=== PATIENT | male | born 1985 | race Caucasian/White ===

== ENCOUNTER 2017-04-08 12:26 | Observation (INO) | payer SELFPAY ==
[~2017-04-08] VITALS: Ht 193 cm; Wt 180.0 kg
[2017-04-08 12:27] VITALS: BP 183/99; PULSE 121; RESP 16; TEMP 98; O2SAT 98
--- NOTE | 2017-04-08 12:47 | PD ---
HPI Chief Complaint: Cardiac Complaint Time Seen by Provider: 12:46 Travel History International Travel<30 days: No Contact w/Intl Traveler<30days: No Traveled to known affect area: No History of Present Illness HPI 32-year-old male came to the emergency room with history of both hands and feet tingling for past 1 week. Patient also noticed that he is progressively getting weak and has been short of breath for past 2 days. He has been getting some substernal chest pain as well. This morning when he was in the shower he started feeling very weak and that's when he decided to come to the emergency room and be checked out. No radiation of the pain. He describes the chest pain as squeezing kind. No aggravating or relieving factors identified. Patient says that for past 5-6 years he was mostly staying at home taking care of his father. 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 He acknowledges the fact that he is significantly overweight. No history of coronary artery disease. Patient is not a smoker. No recent long distance travel history or any surgeries or procedures. FORMERLY [facility], [facility] Past Medical History Narrative Medical List of his past medical, surgical, social and family history reviewed from the nursing note. Diabetes: Yes Social History Tobacco Use: Yes Allergies-Medications (Allergen,Severity, Reaction): Coded Allergies: Morphine (Verified Allergy, Severe, Rash, 04/08/17) pt states "I feel like I'm on fire." Comments List of his allergies reviewed from the nursing note Reported Meds & Prescriptions Reported Meds & Active Scripts Active Narrative Medication Awaiting for the nurse to update the medical reconciliation. Review of Systems Except as stated in HPI: all other systems reviewed are Neg Physical Exam Narrative GENERAL: Awake, alert, morbidly obese, anxious, moderate distress SKIN: Focused skin assessment warm/dry. Acanthosis nigricans. HEAD: Atraumatic. Normocephalic. EYES: Pupils equal and round. No scleral icterus. No injection or drainage. ENT: No nasal bleeding or discharge. Mucous membranes pink and moist. NECK: Trachea midline. No JVD. CARDIOVASCULAR: Regular rate and rhythm. No murmur appreciated. RESPIRATORY: No accessory muscle use. Clear to auscultation. Breath sounds equal bilaterally. GASTROINTESTINAL: Abdomen soft, non-tender, nondistended. Hepatic and splenic margins not palpable. MUSCULOSKELETAL: No obvious deformities. No clubbing. No cyanosis. No edema. NEUROLOGICAL: Awake and alert. No obvious cranial nerve deficits. Motor grossly within normal limits. Normal speech. PSYCHIATRIC: Appropriate mood and affect; insight and judgment normal. Data Data Last Documented VS Orders Electrocardiogram (04/08/17 12:59) Basic Metabolic Panel (Bmp) (04/08/17 12:59) Ckmb (Isoenzyme) Profile (04/08/17 12:59) Complete Blood Count With Diff (04/08/17 12:59) Magnesium (Mg) (04/08/17 12:59) Prothrombin Time / Inr (Pt) (04/08/17 12:59) Act Partial Throm Time (Ptt) (04/08/17 12:59) Troponin I (04/08/17 12:59) Chest, Single Ap (04/08/17 12:59) Ecg Monitoring (04/08/17 12:59) Bilateral Bp Monitoring (04/08/17 12:59) Iv Access Insert/Monitor (04/08/17 12:59) Oximetry (04/08/17 12:59) Oxygen Administration (04/08/17 12:59) Ct Brain W/O Iv Contrast(Rout) (04/08/17 ) Aspirin Chew (Aspirin Chew) (04/08/17 14:00) Insulin Human Regular Inj (Novolin R Inj (04/08/17 14:45) Sodium Chlor 0.9% 1000 Ml Inj (Ns 1000 M (04/08/17 14:45) Admit Order (Ed Use Only) (04/08/17 15:18) Labs MDM Medical Decision Making Medical Screen Exam Complete: Yes Emergency Medical Condition: Yes Medical Record Reviewed: Yes Interpretation(s) Twelve-lead EKG was reviewed by me. Normal sinus rhythm, left axis deviation, PVCs, poor R-wave progression. Nonspecific ST-T wave changes. Heart rate of 97 bpm. Differential Diagnosis ACS, non-STEMI, congestive heart failure, electrolyte abnormality Narrative Course 1:56 PM awaiting for the blood test results to come back. Patient was given 2 baby aspirin's to chew. Awaiting for the CT to be done and resulted. 3:18 PM test results came back and patient's sugar is very high. I have ordered 12 units of subcutaneous insulin 10 1 L of IV fluid bolus. Given his medical issues and the new onset diabetes where he would require some teaching to use medication before going home I decided to admit him medically for his chest pain. Procedures EKG Prior to Arrival: No Diagnosis Primary Impression: Chest pain Qualified Code: R07.9 - Chest pain, unspecified type Additional Impressions: Hyperglycemia New onset type 1 diabetes mellitus, uncontrolled Admitting Information Admitting Physician Requests: Observation Scripts Aspirin (Aspirin Low Strength)81 Mg Chew81 Mg CHEW DAILY #30 EA Prov:Emily Colon JIN 04/11/17 Glucocom Test Strips 1 Samina Samina #1 Ea .route As Directed Prov:Emily Colon JIN 04/11/17 Lancets 1 Mis Mis #1 EA .ROUTE DIRECTED Ref 0 Prov:Eimly Colon JIN 04/11/17 Insulin Syringe/U-100/31G X 5/16" 1 ml 1 Mis Mis #1 EA .ROUTE DIRECTED Ref 0 Prov:IsaiahEmily JIN 04/11/17 Blood Glucose Monitoring W/Device (Glucocom Blood Glucose Mo W/Device)1 Kit Kit #1 Kit .route As Directed Prov:Emily Colon JIN 04/11/17 Lisinopril 5 Mg Tab5 Mg PO DAILY #30 TAB Prov:IsaiahEmily Carlton JIN 04/11/17 Insulin Detemir Inj (Levemir Inj)1,000 unit/ 10 ML Vial22 Units SQ BID #60 INJECTION Prov:Emily Colon PA-C 04/11/17 Atorvastatin (Lipitor)10 Mg Tab10 Mg PO HS #30 TAB Prov:Emily Colon PA-C 04/11/17 Alta Dale MD Apr 08, 2017 12:47 Prothrombin Time 11.2 SEC Prothromb Time International 1.0 RATIO Ratio Activated Partial 27.6 SEC Thromboplast Time Sodium Level 134 MEQ/L Potassium Level MEQ/L Chloride Level 98 MEQ/L Carbon Dioxide Level 25.1 MEQ/L Anion Gap 11 MEQ/L Blood Urea Nitrogen 12 MG/DL Creatinine 1.06 MG/DL Estimat Glomerular Filtration 81 ML/MIN Rate Random Glucose 471 MG/DL Calcium Level 8.6 MG/DL Magnesium Level 2.1 MG/DL Total Creatine Kinase 64 U/L Troponin I LESS THAN 0.02 NG/ML MDM Medical Decision Making Medical Screen Exam Complete: Yes Emergency Medical Condition: Yes Medical Record Reviewed: Yes Interpretation(s) Twelve-lead EKG was reviewed by me. Normal sinus rhythm, left axis deviation, PVCs, poor R-wave progression. Nonspecific ST-T wave changes. Heart rate of 97 bpm. Differential Diagnosis ACS, non-STEMI, congestive heart failure, electrolyte abnormality Narrative Course 1:56 PM awaiting for the blood test results to come back. Patient was given 2 baby aspirin's to chew. Awaiting for the CT to be done and resulted. 3:18 PM test results came back and patient's sugar is very high. I have ordered 12 units of subcutaneous insulin 10 1 L of IV fluid bolus. Given his medical issues and the new onset diabetes where he would require some teaching to use medication before going home I decided to admit him medically for his chest pain. Procedures EKG Prior to Arrival: No Diagnosis Primary Impression: Chest pain Qualified Code: R07.9 - Chest pain, unspecified type Additional Impressions: Hyperglycemia New onset type 1 diabetes mellitus, uncontrolled Admitting Information Admitting Physician Requests: Observation Scripts No Active Prescriptions or Reported Meds Alta Dale MD Apr 08, 2017 12:47
--- NOTE | 2017-04-08 13:14 | RADRPT ---
EXAM DATE/TIME: 04/08/2017 13:00 [facility] COMPARISON: No previous studies available for comparison. INDICATIONS : Chest pressure. Short of breath. Numbness in extremities. MEDICAL HISTORY : Asthma. SURGICAL HISTORY : None. ENCOUNTER: Initial ACUITY: 1 week PAIN SCORE: 3/10 LOCATION: Bilateral chest FINDINGS: A single view of the chest demonstrates the lungs to be symmetrically aerated without evidence of mas s, infiltrate or effusion. The cardiomediastinal contours are unremarkable. Osseous structures are intact. CONCLUSION: No acute disease. Bull Curtis MD on April 08, 2017 at 13:13 Board Certified Radiologist. This report was verified electronically.
[2017-04-08] MEDS ORDERED: ASPIRIN 81 MG CHEW TAB CHEW ONE (14:00)
[2017-04-08 14:07] LABS: AUTOMATED NEUTROPHIL # 6.1 TH/MM3 (1.8-7.7); BASOPHIL # 0.1 TH/MM3 (0-0.2); BASOPHIL % 0.8 % (0.0-2.0); EOSINOPHIL # 0.1 TH/MM3 (0-0.4); EOSINOPHIL % 0.9 % (0.0-4.0); HEMATOCRIT 45.6 % (39.0-51.0); HEMO FLAGS DIFF FINAL; LYMPH % 24.1 % (9.0-44.0); LYMPHOCYTE # 2.2 TH/MM3 (1.0-4.8); MEAN CORPUSCULAR HEMOGLOBIN 29.2 PG (27.0-34.0); MEAN CORPUSCULAR HGB CONC 34.7 % (32.0-36.0); MONO % 6.9 % (0.0-8.0); NEUT % 67.3 % (16.0-70.0); PLATELET COUNT 217 TH/MM3 (150-450); RED BLOOD COUNT 5.43 MIL/MM3 (4.50-5.90); RED CELL DISTRIBUTION WIDTH 13.2 % (11.6-17.2)
[2017-04-08 14:25] LABS: APTT (PATIENT) 27.6 SEC (24.3-30.1); PROTHROMBIN TIME - PATIENT 11.2 SEC (9.8-11.6)
[2017-04-08 14:29] LABS: ANION GAP 11 MEQ/L (5-15); BICARBONATE 25.1 MEQ/L (21.0-32.0); BLOOD UREA NITROGEN 12 MG/DL (7-18); CHLORIDE 98 MEQ/L (98-107); GLOMERULAR FILTRATION RATE 81 ML/MIN (>89); MAGNESIUM 2.1 MG/DL (1.5-2.5); SODIUM (NA) 134 MEQ/L (136-145)
[2017-04-08 14:34] LABS: CREATINE KINASE 64 U/L (39-308)
[2017-04-08] MEDS ORDERED: SODIUM CHLOR 0.9% 1000 ML INJ 1,000 ML IV ONE (14:45)
[2017-04-08] MEDS ORDERED: INSULIN HUMAN REGULAR 1,000 UNITS/10 ML VIAL SQ ONE (14:45)
--- NOTE | 2017-04-08 15:32 | RADRPT ---
EXAM DATE/TIME: 04/08/2017 15:13 [facility] COMPARISON: No previous studies available for comparison. INDICATIONS : Patient complains of weakness, shortness of breath, chest pain. RADIATION DOSE: 48.76 CTDIvol (mGy) MEDICAL HISTORY : Diabetes mellitus type 1. SURGICAL HISTORY : None. ENCOUNTER: Initial ACUITY: 1 day PAIN SCALE: 0/10 LOCATION: cranial TECHNIQUE: Multiple contiguous axial images were obtained of the head. Using automated exposure control and adj ustment of the mA and/or kV according to patient size, radiation dose was kept as low as reasonably a chievable to obtain optimal diagnostic quality images. DICOM format image data is available electro nically for review and comparison. FINDINGS: CEREBRUM: The ventricles are normal for age. No evidence of midline shift, mass lesion, hemorrhage or acute in farction. No extra-axial fluid collections are seen. POSTERIOR FOSSA: The cerebellum and brainstem are intact. The 4th ventricle is midline. The cerebellopontine angle i s unremarkable. EXTRACRANIAL: The visualized portion of the orbits is intact. SKULL: The calvaria is intact. No evidence of skull fracture. CONCLUSION: Normal examination. Ki Goyal MD on April 08, 2017 at 15:31 Board Certified Radiologist. This report was verified electronically.
[2017-04-08] MEDS ORDERED: INSULIN ASPART SUPPLEMENTAL SCALE SQ SCH (16:00)
[2017-04-08] MEDS ORDERED: GLUCAGON 1 MG/ML VIAL OTHER PRN (16:00)
[2017-04-08] MEDS ORDERED: NALOXONE HCL 0.4 MG/ML AMP IV PRN (16:00)
[2017-04-08] MEDS ORDERED: SENNOSIDES 8.6 MG TAB PO PRN (16:00)
[2017-04-08] MEDS ORDERED: LACTULOSE SYRUP 20 GM/30 ML CUP PO PRN (16:00)
[2017-04-08] MEDS ORDERED: MAGNESIUM HYDROXIDE SUSP 30 ML CUP PO PRN (16:00)
[2017-04-08] MEDS ORDERED: ONDANSETRON HCL 4 MG/2 ML VIAL IVP PRN (16:00)
[2017-04-08] MEDS ORDERED: SODIUM CHLORIDE 0.9% FLUSH 10 ML FLUSH IV FLUSH PRN (16:00)
[2017-04-08] MEDS ORDERED: DEXTROSE 50% IN WATER 50 ML VIAL(D50) IV PRN (16:00)
[2017-04-08] MEDS ORDERED: BISACODYL 10 MG SUPP RECTAL PRN (16:00)
--- NOTE | 2017-04-08 16:03 | HHI.HP ---
HPI Service [facility] Hospitalists Primary Care Physician No Primary Care Physician Admission Diagnosis chest pain, rule out ACS, new onset diabetes Diagnoses: Chief Complaint: Chest pain SOB Numbness/tingling bilateral hands and feet Weakness Travel History International Travel<30 Days: No Contact w/Intl Traveler <30 Da: No Traveled to Known Affected Are: No History of Present Illness This is a 32-year-old male with newly diagnosed diabetes approximately 6 months ago who was previously on metformin but unable to tolerate secondary GI upset and was subsequently placed on glyburide which patient discontinued on his own determining himself he was misdiagnosed who presents to [facility] ED with complaints of chest pain, shortness of breath and numbness and tingling in bilateral hands and feet. Patient reports that for the last week, he's been experiencing numbness in the hands and feet which became much more severe in the past 24 hours. He also reports new onset chest pain that began while patient was walking around [place] yesterday. The patient describes the chest pain as someone pushing on his chest with associated shortness of breath. Patient states that the chest pain improved with rest. Patient's had 2 more episodes, once while taking a shower this morning and the other while walking into the ED from the parking lot. 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 The symptoms were alleviated with 30 minutes of rest in air conditioning. Patient states he checks his blood sugar once a month and it's always been around 120. Patient denies any nausea, vomiting or abdominal pain. He denies any recent illness. He reports one-year history of alternating diarrhea and constipation. Denies any black/bloody/tarry stools. He denies any hematuria or dysuria. In the ED, patient is afebrile and white count is normal. Chest x-ray shows no acute disease. CT of the head was obtained and was unremarkable. His blood sugar was extremely elevated at 471. Initial troponin was negative. Review of Systems Except as stated in HPI: all other systems reviewed are Neg Past Family Social History Past Medical History Newly diagnosed diabetes mellitus, patient stopped his medication on his own. Past Surgical History Right ankle surgery Reported Medications Patient denies any home medications. Allergies: Coded Allergies: Morphine (Verified Allergy, Severe, Rash, 04/08/17) pt states "I feel like I'm on fire." Active Ordered Medications Current Medications Medications (Trade) Dose Ordered Sig/Rosaline Route Start Time Stop Time Status Last Admin (NS 1000 ml Inj) 1,000 ml @ 999 mls/hr BOLUS ONCE IV 04/08/17 14:45 04/08/17 15:45 04/08/17 15:10 Family History Father, diabetes, degenerative disc disease lumbar spine Mother, COPD Social History Patient reports tobacco use of 2 cigarettes per week. Patient reports alcohol consumption of 2 beers per week. Patient denies any illicit drug use. 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 Physical Exam Vital Signs Vital Signs Date Time Temp Pulse Resp B/P Pulse Ox O2 Delivery O2 Flow Rate FiO2 04/08/17 13:50 102 04/08/17 12:27 98.0 121 16 183/99 98 Room Air Physical Exam GENERAL: This is a well-nourished, well-developed moridly obese patient, in no apparent distress. Awake and alert. SKIN: No rashes, ecchymoses or lesions. Cool and dry. HEAD: Atraumatic. Normocephalic. No temporal or scalp tenderness. EYES: Pupils equal round and reactive. Extraocular motions intact. No scleral icterus. No injection or drainage. ENT: Nose without bleeding or purulent drainage. Throat without erythema, tonsillar hypertrophy or exudate. Uvula midline. Airway patent. NECK: Trachea midline. No JVD or lymphadenopathy. Supple, nontender, no meningeal signs. CARDIOVASCULAR: Tachycardic without murmurs, gallops, or rubs. RESPIRATORY: Clear to auscultation. Breath sounds equal bilaterally. No wheezes , rales, or rhonchi. GASTROINTESTINAL: Abdomen soft, non-tender, nondistended. No hepato-splenomegaly , or palpable masses. No guarding. MUSCULOSKELETAL: Extremities without clubbing or cyanosis. Trace edema bilaterally. Mild right knee tenderness. No calf tenderness. NEUROLOGICAL: Awake and alert. Able to move all extremities. Motor and sensory function grossly intact in bilateral upper extremities and bilateral lower extremities. Normal speech. Laboratory Laboratory Tests Test 04/08/17 13:12 White Blood Count 9.0 Red Blood Count 5.43 Hemoglobin 15.8 Hematocrit 45.6 Mean Corpuscular Volume 84.0 Mean Corpuscular Hemoglobin 29.2 Mean Corpuscular Hemoglobin 34.7 Concent Red Cell Distribution Width 13.2 Platelet Count 217 Mean Platelet Volume 9.0 Neutrophils (%) (Auto) 67.3 Lymphocytes (%) (Auto) 24.1 Monocytes (%) (Auto) 6.9 Eosinophils (%) (Auto) 0.9 Basophils (%) (Auto) 0.8 Neutrophils # (Auto) 6.1 Lymphocytes # (Auto) 2.2 Monocytes # (Auto) 0.6 Eosinophils # (Auto) 0.1 Basophils # (Auto) 0.1 CBC Comment DIFF FINAL Differential Comment Prothrombin Time 11.2 Prothromb Time International 1.0 Ratio Activated Partial 27.6 Thromboplast Time Sodium Level 134 Potassium Level Chloride Level 98 Carbon Dioxide Level 25.1 Anion Gap 11 Blood Urea Nitrogen 12 Creatinine 1.06 Estimat Glomerular Filtration 81 Rate Random Glucose 471 Calcium Level 8.6 Magnesium Level 2.1 Total Creatine Kinase 64 Troponin I LESS THAN 0.02 Result Diagram: 04/08/17 1312 04/08/17 1312 Imaging Last Impressions Chest X-Ray 04/08/17 1259 Signed Impressions: Service Date/Time: Saturday, April 08, 2017 13:00 - CONCLUSION: No acute disease. Bull Curtis MD Head CT 04/08/17 0000 Signed Impressions: Service Date/Time: Saturday, April 08, 2017 15:13 - CONCLUSION: Normal examination. Ki Goyal MD Assessment and Plan Assessment and Plan 32-year-old male with newly diagnosed diabetes who was previously on metformin but unable to tolerate secondary GI upset and was subsequently placed on glyburide which patient discontinued on his own who presents to [facility] ED with complaints of chest pain, shortness of breath and numbness and tingling in bilateral hands and feet. Chest pain, with typical features, R/O ACS - Patient given aspirin in the ED. Will continue daily. - Cycle cardiac enzymes and EKG - Nitro and Morphine prn - Continuous cardiac monitoring - Obtain TSH and a lipid panel - Supplemental oxygen as needed to keep O2 sat above 92% - Nuclear stress test ordered in the am Newly diagnosed diabetes with medication noncompliance Hyperglycemia - Patient unable to tolerate metformin due to GI upset and glyburide due to fatigue - Blood sugar 471 - Accuchecks - Level 2 ISS - Levemir 10u BID - obtain HgbA1c - consult youth liaison officer for diabetic counseling Elevated BP - no documented history of hypertension - BP 183/99 in ED - now 129/79 - Clonidine prn with parameters - continue to monitor and adjust tx as indicated Tobaccoism - Discussed smoking cessation/counseling DVT prophylaxis - SCD/GERARDO sylvester Discussed Condition With Patient and Dr. Lechuga Attending Statement The exam, history, and the medical decision-making described in the above note were completed with the assistance of the mid-level provider. I reviewed and agree with the findings presented. I attest that I had a [id number] encounter with the patient on the same day, and personally performed and documented my assessment and findings in the medical record. Patient complaint chest pain with exertion. He stated that his pain resolves with rest. He had this happen a few times within the week. Patient was diagnosed with diabetes about 6 months ago. He stated he was put on metformin and glyburide and thought that he was misdiagnosed. Patient stated that he took a self off the medication. He stated that he checks his blood sugars and is around 130. GENERAL: in NAD CARDIOVASCULAR: Regular rate and rhythm without murmurs, gallops, or rubs. RESPIRATORY: Breath sounds equal bilaterally. No accessory muscle use. GASTROINTESTINAL: Abdomen soft, non-tender, nondistended. MUSCULOSKELETAL: No cyanosis, or edema. BACK: Nontender without obvious deformity. No CVA tenderness. Chest pain -Patient is high rest. Chest pain seems to occur with exertion. Troponin is within normal limits at the moment. Will continue to trend troponin. -Will get a nuclear stress test. -Monitor over telemetry. Type 2 diabetes -Noncompliant. Patient took himself off medication. Will get hemoglobin A1C. -We'll get a ict educator. Will put patient on insulin signs scope. Start patient on Levemir. -Continue to monitor and adjust accordingly. Jennifer Domingo Apr 08, 2017 16:03 Светлана Lechuga MD Apr 08, 2017 18:11
[2017-04-08 16:04] VITALS: O2SAT 99
[2017-04-08] MEDS ORDERED: cloNIDine HCL 0.1 MG TAB PO PRN (16:15)
[2017-04-08] MEDS ORDERED: NITROGLYCERIN 0.4 MG SL 25 TABS/BTL SL PRN (16:30)
[2017-04-08] MEDS ORDERED: MORPHINE SULFATE 4 MG/ML INJ IV PUSH PRN (16:30)
[2017-04-08 19:30] VITALS: BP 124/85; PULSE 89; RESP 18; O2SAT 97
[2017-04-08] MEDS: SODIUM CHLORIDE 0.9% FLUSH 10 ML FLUSH IV FLUSH SCH (19:55)
[2017-04-08 20:00] VITALS: O2SAT 100
[2017-04-08] MEDS ORDERED: INSULIN DETEMIR 100 UNITS/ML VIAL SQ SCH (21:00)
[2017-04-08] MEDS ORDERED: HYDROmorphone HCL PF 1 MG/ML VIAL IV PUSH PRN (22:30)
[2017-04-08] MEDS: DOCUSATE SODIUM 50 MG/SENNA 8.6 MG TAB PO SCH (22:42)
[2017-04-08] MEDS: INSULIN ASPART SUPPLEMENTAL SCALE SQ SCH (22:52)
[2017-04-09] VITALS (10 sets, daily range): BP systolic 131–146; BP diastolic 68–85; PULSE 68–106; RESP 16–18; TEMP 97.9–98.4; O2SAT 95–98
[2017-04-09 05:38] LABS: AUTOMATED NEUTROPHIL # 6.5 TH/MM3 (1.8-7.7); BASOPHIL # 0.1 TH/MM3 (0-0.2); BASOPHIL % 1.1 % (0.0-2.0); EOSINOPHIL # 0.1 TH/MM3 (0-0.4); EOSINOPHIL % 1.2 % (0.0-4.0); HEMATOCRIT 44.9 % (39.0-51.0); HEMO FLAGS DIFF FINAL; LYMPH % 32.2 % (9.0-44.0); LYMPHOCYTE # 3.6 TH/MM3 (1.0-4.8); MEAN CELL VOLUME 81.7 FL (80.0-100.0); MEAN CORPUSCULAR HGB CONC 35.4 % (32.0-36.0); MONO % 6.6 % (0.0-8.0); NEUT % 58.9 % (16.0-70.0); PLATELET COUNT 206 TH/MM3 (150-450); RED BLOOD COUNT 5.49 MIL/MM3 (4.50-5.90)
[2017-04-09 06:16] LABS: ALKALINE PHOSPHATASE 64 U/L (45-117); ALT (GPT) 65 U/L (12-78); ANION GAP 9 MEQ/L (5-15); AST (GOT) 34 U/L (15-37); BICARBONATE 27.5 MEQ/L (21.0-32.0); BLOOD UREA NITROGEN 11 MG/DL (7-18); CHLORIDE 101 MEQ/L (98-107); GLOMERULAR FILTRATION RATE 114 ML/MIN (>89); HDL CHOLESTEROL 24.9 MG/DL (40.0-60.0); POTASSIUM 3.6 MEQ/L (3.5-5.1); SODIUM (NA) 137 MEQ/L (136-145); TOTAL BILIRUBIN ADULT 0.9 MG/DL (0.2-1.0)
[2017-04-09] MEDS: ACETAMINOPHEN 325 MG TAB PO PRN ×2 (06:29→23:16)
[2017-04-09] MEDS: INSULIN ASPART SUPPLEMENTAL SCALE SQ SCH ×4 (07:00→21:37)
[2017-04-09] MEDS ORDERED: POTASSIUM CHLORIDE 20 MEQ CONTROLLED RELEASE TAB PO ONE (08:45)
--- NOTE | 2017-04-09 08:46 | EKG ---
Date Performed: 04/09/2017 Time Performed: 02:08:07 PTAGE: 32 years EKG: Sinus rhythm LOW QRS VOLTAGE IN EXTREMITY LEADS POSSIBLE RIGHT VENTRICULAR CONDUCTION DELAY POSSIBLE ANTERIOR TRACY CARDIAL INFARCTION INFERIOR MYOCARDIAL INFARCTION ABNORMAL ECG PREVIOUS TRACING : 04/08/2017 19.45 DOCTOR: Ki Mullen Interpretating Date/Time 04/09/2017 08:44:13
--- NOTE | 2017-04-09 08:59 | EKG ---
Date Performed: 04/08/2017 Time Performed: 19:45:40 PTAGE: 32 years EKG: Sinus rhythm PATTERN CONSISTENT WITH PULMONARY DISEASE INCOMPLETE RIGHT BUNDLE BRANCH BLOCK INFERIOR MYOCARDIAL I NFARCTION ABNORMAL ECG PREVIOUS TRACING : 04/08/2017 13.01 DOCTOR: Ki Mullen Interpretating Date/Time 04/09/2017 08:58:49
[2017-04-09] MEDS: DOCUSATE SODIUM 50 MG/SENNA 8.6 MG TAB PO SCH (09:00)
[2017-04-09] MEDS: ASPIRIN 81 MG CHEW TAB CHEW SCH (10:07)
[2017-04-09] MEDS: SODIUM CHLORIDE 0.9% FLUSH 10 ML FLUSH IV FLUSH SCH ×2 (10:07→21:34)
--- NOTE | 2017-04-09 10:12 | EKG ---
Date Performed: 04/08/2017 Time Performed: 13:01:54 PTAGE: 32 years EKG: SINUS TACHYCARDIA WITH OCCASIONAL ECTOPIC PREMATURE COMPLEXES POSSIBLE ANTERIOR MYOCARDIAL INFARCTION INFERIOR MYOCARDIAL INFARCTION ABNORMAL ECG INTERPRETATION BASED ON A DEFAULT AGE OF 40 YE ARS PREVIOUS TRACING : 04/08/2017 13.00 DOCTOR: Ki Mullen Interpretating Date/Time 04/09/2017 10:12:04
--- NOTE | 2017-04-09 11:04 | HHI.PR ---
Subjective Remarks Follow-up for chest pain recently diagnosed diabetes. The patient denies any chest pain overnight, states chest pain had been with exertion recently. He reports that he presented with fatigue feeling, which is improving some. He does complain of a headache today. He did not tolerate metformin or glyburide secondary to GI upset. The patient states he used to be over 400 pounds, but has lost weight. He does state that in the last few months he's noticed his vision is less sharp. He understands the need for outpatient follow-up for diabetes. Stress test today is pending. Objective Vitals Vital Signs Date Time Temp Pulse Resp B/P Pulse Ox O2 Delivery O2 Flow Rate FiO2 04/09/17 08:05 97.9 88 18 133/83 95 04/09/17 06:07 98.0 68 18 134/74 97 04/09/17 03:50 84 04/09/17 00:19 106 04/09/17 00:06 98.4 74 18 131/68 98 04/08/17 20:00 100 04/08/17 19:30 89 18 124/85 97 Room Air 04/08/17 16:04 99 04/08/17 13:50 102 04/08/17 12:27 98.0 121 16 183/99 98 Room Air Result Diagram: 04/09/17 0355 04/09/17 0355 Imaging Last Impressions Chest X-Ray 04/08/17 1259 Signed Impressions: Service Date/Time: Saturday, April 08, 2017 13:00 - CONCLUSION: No acute disease. Bull Curtis MD Head CT 04/08/17 0000 Signed Impressions: Service Date/Time: Saturday, April 08, 2017 15:13 - CONCLUSION: Normal examination. Ki Goyal MD Objective Remarks GENERAL: Well-developed well-nourished. Tall, solidly built, morbidly obese. In no acute distress. SKIN: Warm and dry. No lesions noted. HEENT: Normocephalic. Pupils equal and round. Mucous membranes pink and moist. CARDIOVASCULAR: Regular rate and rhythm. No murmur appreciated. RESPIRATORY: No accessory muscle use. Clear to auscultation. Breath sounds equal bilaterally. GASTROINTESTINAL: Abdomen soft, non-tender, nondistended. Bowel sounds x4. MUSCULOSKELETAL: No obvious deformities. No clubbing or cyanosis. No edema. NEUROLOGICAL: Awake and alert. No focal neurological deficits. Moves upper and lower extremities spontaneously. Normal speech. PSYCHIATRIC: Pleasant mood and affect; insight and judgment normal. A/P Assessment and Plan 32-year-old male with newly diagnosed diabetes who was previously on metformin but unable to tolerate secondary GI upset and was subsequently placed on glyburide which patient discontinued on his own who presents to [facility] ED with complaints of chest pain, shortness of breath and numbness and tingling in bilateral hands and feet. Chest pain, with typical features, R/O ACS Reviewed: EKGs with nonspecific ST changes. Troponin negative 3. Chest x-ray clear. - Continue aspirin - Nitro and Dilaudid prn for pain - Continuous cardiac monitoring - Nuclear stress test ordered Recently diagnosed diabetes with medication noncompliance Hyperglycemia - Patient unable to tolerate metformin due to GI upset and glyburide due to fatigue - Blood sugar 471 at admission - Accuchecks and sliding scale coverage - Started Levemir 10u HS - HgbA1c pending - consult car builder and clinical unit educator - Counseled extensively on outpatient follow-up for further management - Case management consulted for assistance with outpatient follow-up Elevated BP: No history of hypertension. While in the ED with elevated blood sugar, likely secondary to hyperglycemia. Better controlled overnight. - Clonidine prn with parameters - continue to monitor and adjust tx as indicated Hyperlipidemia: Triglycerides elevated at 467, LDL is unquantifiable, HDL is low at 24.9. - Start statin Tobaccoism - Smoking cessation/counseling DVT prophylaxis - SCD/GERARDO hose Discharge Planning Follow up results of stress test, blood glucose control, and hemoglobin A1c. Panda Rivera Apr 09, 2017 11:04
[2017-04-09] MEDS ORDERED: REGADENOSON INJ 0.4 MG/5 ML SYR ONE (12:32)
--- NOTE | 2017-04-09 15:09 | RADRPT ---
EXAM DATE/TIME: 04/08/2017 17:12 [place] COMPARISON: No previous studies available for comparison. INDICATIONS : Chest pressure and dyspnea. Angina. DOSE: 30.2 mCi Tc99m Myoview at stress. 31.2 mCi Tc99m Myoview at rest. 0.4 mg Lexiscan STRESS SYMPTOMS: Chest pressure and short of breath. EJECTION FRACTION: 40% MEDICAL HISTORY : Diabetes mellitus type 2. Smoker. SURGICAL HISTORY : Ankle ENCOUNTER: Initial ACUITY: 1 day PAIN SCALE: 3/10 LOCATION: chest TECHNIQUE: The patient underwent pharmacologic stress with infusion of prescribed dose. Continuous ECG tracing was monitored during stress. Gated SPECT imaging was performed after stress and conventional SPECT i maging was performed at rest. The examination was performed on a SPECT/CT scanner, both attenuation and non-corrected datasets were reviewed. FINDINGS: DISTRIBUTION: The maximum perfused segment at stress is in the septum wall. PERFUSION STUDY: There are some fixed defects within the anterior and inferior park.. GATED STUDY: There is global hypokinesia. CONCLUSION: 1. No reversible perfusion defects to suggest ischemia. 2. Cardiomyopathy with fixed defects. RISK CATEGORY: High (>3% Annual Mortality Rate) Bull Curtis MD on April 09, 2017 at 15:02 Board Certified Radiologist. This report was verified electronically.
[2017-04-09 16:36] LABS: HEMOGLOBIN A1a 1.1 %; HEMOGLOBIN A1b 2.8 %; HEMOGLOBIN Ao 76.5 %; HEMOGLOBIN LA1C 3.5 %; HEMOGLOBIN P3 5.1 %
[2017-04-09] MEDS ORDERED: INSULIN DETEMIR 100 UNITS/ML VIAL SQ SCH ×2 (21:00)
[2017-04-09] MEDS: ATORVASTATIN 10 MG TAB PO SCH (21:34)
[2017-04-10] VITALS (8 sets, daily range): BP systolic 121–139; BP diastolic 62–84; PULSE 74–99; RESP 18–22; TEMP 97.9–99.1; O2SAT 96–99
[2017-04-10] MEDS: INSULIN ASPART SUPPLEMENTAL SCALE SQ SCH ×2 (07:20→12:34)
[2017-04-10] MEDS ORDERED: INSULIN DETEMIR 100 UNITS/ML VIAL SQ SCH (09:00)
--- NOTE | 2017-04-10 09:29 | HHI.PR ---
Subjective Remarks Follow-up for chest pain and diabetes. The patient feels like his extremity numbness has improved with better blood sugar control. He states she's been having chest pressure with exertion recently. He hasn't really exerted himself here, but he denies any chest pain or pressure. He denies any definite lower extremity swelling. Objective Vitals Vital Signs Date Time Temp Pulse Resp B/P Pulse Ox O2 Delivery O2 Flow Rate FiO2 04/10/17 07:55 98.6 97 20 128/71 97 04/10/17 07:27 96 21 04/10/17 06:25 98.4 90 18 121/79 97 04/10/17 00:01 98.4 74 22 127/80 99 04/09/17 22:09 98 04/09/17 21:01 98.1 78 18 146/69 98 04/09/17 15:10 21 04/09/17 12:11 98.1 87 16 134/85 97 Result Diagram: 04/09/17 0355 04/09/17 0355 Imaging Last Impressions Chest X-Ray 04/08/17 1259 Signed Impressions: Service Date/Time: Saturday, April 08, 2017 13:00 - CONCLUSION: No acute disease. Bull Curtis MD Myocardial Perfusion Scan Nuc Med 04/08/17 0000 Signed Impressions: Service Date/Time: Saturday, April 08, 2017 17:12 - CONCLUSION: 1. No reversible perfusion defects to suggest ischemia. 2. Cardiomyopathy with fixed defects. RISK CATEGORY: High (>3%% Annual Mortality Rate) Bull Curtis MD Head CT 04/08/17 0000 Signed Impressions: Service Date/Time: Saturday, April 08, 2017 15:13 - CONCLUSION: Normal examination. Ki Goyal MD Objective Remarks GENERAL: Well-developed well-nourished. Tall, solidly built, morbidly obese. In no acute distress. SKIN: Warm and dry. No lesions noted. HEENT: Normocephalic. Pupils equal and round. Mucous membranes pink and moist. CARDIOVASCULAR: Regular rate and rhythm. No murmur appreciated. RESPIRATORY: No accessory muscle use. Clear to auscultation. Breath sounds equal bilaterally. GASTROINTESTINAL: Abdomen soft, non-tender, nondistended. Bowel sounds x4. MUSCULOSKELETAL: No obvious deformities. No clubbing or cyanosis. No edema. NEUROLOGICAL: Awake and alert. No focal neurological deficits. Moves upper and lower extremities spontaneously. Normal speech. PSYCHIATRIC: Pleasant mood and affect; insight and judgment normal. A/P Assessment and Plan 32-year-old male with recently diagnosed diabetes who was previously on metformin but unable to tolerate secondary GI upset and was subsequently placed on glyburide which patient discontinued on his own who presents to [facility] ED with complaints of chest pain, shortness of breath and numbness and tingling in bilateral hands and feet. Chest pain, with typical features, R/O ACS Reviewed: EKGs with nonspecific ST changes. Troponin negative 3. Chest x-ray clear. Stress test showed no ischemic changes, but decreased EF at 40%. - Continue aspirin - Nitro and Dilaudid prn for pain - Continuous cardiac monitoring - Check echocardiogram, cardiology consult if indicated Recently diagnosed diabetes with medication noncompliance Hyperglycemia - improving - Patient unable to tolerate metformin due to GI upset and glyburide due to fatigue - Blood sugar 471 at admission - Accuchecks and sliding scale coverage - Hemoglobin A1c 10.6 - Increase Levemir 15 units twice daily - consulted clinical reimbursement specialist and life skills educator - Counseled extensively on outpatient follow-up for further management - Case management consulted for assistance with outpatient follow-up Elevated BP: No history of hypertension. While in the ED with elevated blood sugar, likely secondary to hyperglycemia. Better controlled overnight. - Clonidine prn with parameters - continue to monitor and adjust tx as indicated Hyperlipidemia: Triglycerides elevated at 467, LDL is unquantifiable, HDL is low at 24.9. - Started statin Tobaccoism - Smoking cessation/counseling DVT prophylaxis - SCD/GERARDO hose Discharge Planning Follow up results of echocardiogram and monitor blood glucose control. Attending Statement Patient seen in his bedroom and examined, discussed with PA Mr. Panda Rivera, discussed with patient and given recommendations about his Compliance with Blood sugar control and Maintain a good weight control , following Echocardiogram and blood sugar control for discharge adjusted dosages of Insulin. Panda Rivera Apr 10, 2017 09:29 Jordan Cole MD Apr 10, 2017 16:52
[2017-04-10] MEDS: SODIUM CHLORIDE 0.9% FLUSH 10 ML FLUSH IV FLUSH SCH ×2 (09:49→20:59)
[2017-04-10] MEDS: ASPIRIN 81 MG CHEW TAB CHEW SCH (09:49)
--- NOTE | 2017-04-10 17:50 | ECHRPT ---
Indication: CONCLUSIONS The left ventricular systolic function is mildly reduced with an estimated ejection fraction in the range of 45- 50%. Mild concentric left ventricular hypertrophy. Doppler parameters are consistent with impaired left ventricular relaxtion (grade 1 diastolic dysfun ction). Trace mitral valve regurgitation. There is trace tricuspid valve regurgitation. BP: / HR: Rhythm: MEASUREMENTS (Male / Female) Normal Values Technical Quality: 2D ECHO LV Diastolic Diameter PLAX 5.1 cm 4.2 - 5.9 / 3.9 - 5.3 cm LV Systolic Diameter PLAX 4.3 cm IVS Diastolic Thickness 1.4 cm 0.6 - 1.0 / 0.6 - 0.9 cm LVPW Diastolic Thickness 1.2 cm 0.6 - 1.0 / 0.6 - 0.9 cm LV Relative Wall Thickness 0.5 RV Internal Dim ED PLAX 2.8 cm M-MODE Aortic Root Diameter MM 3.4 cm LA Systolic Diameter MM 4.9 cm LA Ao Ratio MM 1.4 AV Cusp Separation MM 2.5 cm DOPPLER Mitral E Point Velocity 48.4 cm/s Mitral A Point Velocity 71.1 cm/s Mitral E to A Ratio 0.7 LV E' Lateral Velocity 11.1 cm/s Mitral E to LV E' Lateral Ratio 4.4 LV E' Septal Velocity 7.3 cm/s Mitral E to LV E' Septal Ratio 6.6 FINDINGS LEFT VENTRICLE Normal left ventricular size. Mild concentric left ventricular hypertrophy. The left ventricular systolic function is mildly reduced with an estimated ejection fraction in the range of 45- 50%. There is global left ventricular dysfunction. Doppler parameters are consistent with impaired left ventricular relaxtion (grade 1 diastolic dysfun ction). RIGHT VENTRICLE The right ventricular size is normal. LEFT ATRIUM The left atrial size is mildly dilated. RIGHT ATRIUM The right atrium is not well visualized. ATRIAL SEPTUM The interatrial septum not well visualized. AORTA The aortic root and proximal ascending aorta are not well visualized. MITRAL VALVE Structurally normal mitral valve. Trace mitral valve regurgitation. No mitral valve stenosis. AORTIC VALVE Probably trileaflet aortic valve. No aortic valve regurgitation. No aortic valve stenosis. TRICUSPID VALVE Structurally normal tricuspid valve. There is trace tricuspid valve regurgitation. PULMONARY VALVE The pulmonary valve is not well visualized. No pulmonary valve regurgitation. PERICARDIUM No pericardial effusion. Tu Escobar DO (Electronically Signed) Final Date:10 April 2017 17:49
[2017-04-10] MEDS: LISINOPRIL 5 MG TAB PO SCH (18:16)
[2017-04-10] MEDS ORDERED: INSULIN ASPART SUPPLEMENTAL SCALE SQ SCH (18:31)
[2017-04-10] MEDS: ATORVASTATIN 10 MG TAB PO SCH (20:59)
[2017-04-10] MEDS: INSULIN DETEMIR 100 UNITS/ML VIAL SQ SCH (21:04)
[2017-04-10] MEDS: INSULIN NovoLIN REGULAR SUPPLEMENTAL SCALE SQ SCH (21:11)
[2017-04-11 03:39] VITALS: BP 129/75; PULSE 85; RESP 18; TEMP 98.4; O2SAT 97
[2017-04-11 03:45] VITALS: PULSE 89
[2017-04-11] MEDS: INSULIN NovoLIN REGULAR SUPPLEMENTAL SCALE SQ SCH (07:30)
[2017-04-11 07:36] VITALS: PULSE 85
[2017-04-11 07:45] VITALS: BP 123/80; PULSE 84; RESP 18; TEMP 98.7; O2SAT 98
[2017-04-11 08:08] VITALS: PULSE 78
[2017-04-11] MEDS ORDERED: LIPI10TA PO (08:32)
[2017-04-11] MEDS ORDERED: INSU1MIS15 (08:32)
[2017-04-11] MEDS ORDERED: LEVEMIR SQ (08:32)
[2017-04-11] MEDS ORDERED: GLUCTES12 (08:32)
[2017-04-11] MEDS ORDERED: LISI-519 PO (08:32)
[2017-04-11] MEDS ORDERED: GLUCKIT15 (08:32)
[2017-04-11] MEDS ORDERED: LANCETS1 MI1 (08:32)
--- NOTE | 2017-04-11 08:33 | HHI.DCPOC ---
Discharge Care Plan Diagnosis: (1) Diabetes mellitus, new onset (2) Hypertriglyceridemia (3) Hypertension Goals to Promote Your Health * To prevent worsening of your condition and complications * To maintain your health at the optimal level Directions to Meet Your Goals Take your medications as prescribed Follow your dietary instruction Follow activity as directed Keep your appointments as scheduled Take your immunizations and boosters as scheduled If your symptoms worsen call your PCP, if no PCP go to Urgent Care Center or Emergency Room Smoking is Dangerous to Your Health. Avoid second hand smoke Call the 24-hour hour crisis hotline for domestic abuse at Emily Colon PA-C Apr 11, 2017 8:32 am
[2017-04-11] MEDS: INSULIN DETEMIR 100 UNITS/ML VIAL SQ SCH (09:00)
[2017-04-11] MEDS ORDERED: ASPI81CH25 CHEW (09:21)
--- NOTE | 2017-04-11 09:25 | HHI.DS ---
Discharge Summary Admission Date Apr 08, 2017 at 3:19 pm Discharge Date: Apr 11, 2017 Admitting Diagnosis chest pain, rule out ACS, new onset diabetes (1) Chest pain ICD Code: R07.9 Diagnosis: Principal (2) Diabetes mellitus, new onset ICD Code: E11.9 Diagnosis: Principal (3) Hypertriglyceridemia ICD Code: E78.1 Diagnosis: Secondary (4) Hypertension ICD Code: I10 Diagnosis: Secondary Procedures None. Brief History - From Admission This is a 32-year-old male with newly diagnosed diabetes approximately 6 months ago who was previously on metformin but unable to tolerate secondary GI upset and was subsequently placed on glyburide which patient discontinued on his own determining himself he was misdiagnosed who presents to [facility] ED with complaints of chest pain, shortness of breath and numbness and tingling in bilateral hands and feet. Patient reports that for the last week, he's been experiencing numbness in the hands and feet which became much more severe in the past 24 hours. He also reports new onset chest pain that began while patient was walking around [employer] yesterday. The patient describes the chest pain as someone pushing on his chest with associated shortness of breath. Patient states that the chest pain improved with rest. Patient's had 2 more episodes, once while taking a shower this morning and the other while walking into the ED from the parking lot. 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 The symptoms were alleviated with 30 minutes of rest in air conditioning. Patient states he checks his blood sugar once a month and it's always been around 120. Patient denies any nausea, vomiting or abdominal pain. He denies any recent illness. He reports one-year history of alternating diarrhea and constipation. Denies any black/bloody/tarry stools. He denies any hematuria or dysuria. In the ED, patient is afebrile and white count is normal. Chest x-ray shows no acute disease. CT of the head was obtained and was unremarkable. His blood sugar was extremely elevated at 471. Initial troponin was negative. CBC/BMP: 04/09/17 0355 04/09/17 0355 Significant Findings Laboratory Tests Test 04/08/17 04/08/17 04/09/17 04/09/17 13:12 19:30 00:49 03:55 Sodium Level 134 MEQ/L (136-145) Estimat Glomerular Filtration 81 ML/MIN (>89) Rate Random Glucose 471 MG/DL 321 MG/DL (74-106) (74-106) Troponin I LESS THAN 0.02 LESS THAN 0.02 LESS THAN 0.02 NG/ML NG/ML NG/ML (0.02-0.05) (0.02-0.05) (0.02-0.05) Hemoglobin A1c 10.6 % (4.3-6.0) Albumin 3.2 GM/DL (3.4-5.0) Triglycerides Level 467 MG/DL (42-150) HDL Cholesterol 24.9 MG/DL (40.0-60.0) Imaging Last Impressions Chest X-Ray 04/08/17 1259 Signed Impressions: Service Date/Time: Saturday, April 08, 2017 13:00 - CONCLUSION: No acute disease. Bull Curtis MD Myocardial Perfusion Scan Nuc Med 04/08/17 0000 Signed Impressions: Service Date/Time: Saturday, April 08, 2017 17:12 - CONCLUSION: 1. No reversible perfusion defects to suggest ischemia. 2. Cardiomyopathy with fixed defects. RISK CATEGORY: High (>3%% Annual Mortality Rate) Bull Curtis MD Head CT 04/08/17 0000 Signed Impressions: Service Date/Time: Saturday, April 08, 2017 15:13 - CONCLUSION: Normal examination. Ki Goyal MD PE at Discharge GENERAL: Well-developed well-nourished. Tall, solidly built, morbidly obese. In no acute distress. SKIN: Warm and dry. No lesions noted. HEENT: Normocephalic. Pupils equal and round. Mucous membranes pink and moist. CARDIOVASCULAR: Regular rate and rhythm. No murmur appreciated. RESPIRATORY: No accessory muscle use. Clear to auscultation. Breath sounds equal bilaterally. GASTROINTESTINAL: Abdomen soft, non-tender, nondistended. Bowel sounds x4. MUSCULOSKELETAL: No obvious deformities. No clubbing or cyanosis. No edema. NEUROLOGICAL: Awake and alert. No focal neurological deficits. Moves upper and lower extremities spontaneously. Normal speech. PSYCHIATRIC: Pleasant mood and affect; insight and judgment normal. Pt update on day of discharge Follow up for chest pain, uncontrolled new onset diabetes. The patient reports feeling well today and wants to go home. Denies any further chest pain. Blood sugar better controlled. He has no other medical complaints at this time. Hospital Course 32-year-old male with recently diagnosed diabetes who was previously on metformin but unable to tolerate secondary GI upset and was subsequently placed on glyburide which patient discontinued on his own who presents to [facility] ED with complaints of chest pain, shortness of breath and numbness and tingling in bilateral hands and feet. Chest pain, with typical features: possibly related to uncontrolled diabetes and GI upset on metformin/glyburide. ACS was ruled out with negative serial cardiac enzymes and EKG with no acute ischemic changes. CXR was clear. Nuclear stress test showed no ischemic changes, but decreased EF at 40%. Echocardiogram with EF 45-50%, grade 1 diastolic dysfunction, started on lisinopril, statin, aspirin 81mg daily. Unable to start BB at this time due to soft BP. Monitored on telemetry, no acute findings. Chest pains resolved. New onset Diabetes Mellitus: Recently diagnosed diabetes with medication noncompliance. Presented with blood glucose 471, not in DKA. Patient unable to tolerate metformin due to GI upset and glyburide due to fatigue. Hemoglobin A1c 10.6. Increased Levemir to 22units twice daily. Patient was seen by asthma educator and button maker. Diabetic supplies provided. Counseled extensively on outpatient follow-up for further management. Case management consulted for assistance with outpatient follow-up. Elevated BP: No history of hypertension. While in the ED with elevated blood sugar, likely secondary to hyperglycemia. Started on lisinopril 5mg daily. Better controlled. Hyperlipidemia: Triglycerides elevated at 467, LDL is unquantifiable, HDL is low at 24.9. Patient counseled on diet/exercise. Started statin. Pt Condition on Discharge: Stable Discharge Disposition: Discharge Home Discharge Time: > 30 minutes Discharge Instructions DIET: Follow Instructions for: Heart Healthy Diet, Diabetic Diet Activities you can perform: Regular-No Restrictions Follow up Referrals: PCP Follow-up - [address] [facility] New Medications: Blood Glucose Monitoring W/Device (Glucocom Blood Glucose Mo W/Device) 1 Kit Kit 1 KIT .ROUTE DIRECTED Blood Sugar Management #1 KIT Glucocom Test Strips (Glucocom Test Strips) 1 Samina Samina 1 EA .ROUTE DIRECTED Blood Sugar Management #1 BOX Insulin Syringe/U-100/31G X 5/16" 1 ml (Insulin Syringe/U-100/31G X 5/16" 1 ml) 1 Mis Mis 1 EA .ROUTE DIRECTED Blood Sugar Management #1 Ref 0 BOX Lancets (Lancets) 1 Mis Mis 1 EA .ROUTE DIRECTED Blood Sugar Management #1 Ref 0 BOX Aspirin (Aspirin Low Strength) 81 Mg Chew 81 MG CHEW DAILY Prevent Blood Clot #30 EA Atorvastatin (Lipitor) 10 Mg Tab 10 MG PO HS Cholesterol Management #30 TAB Insulin Detemir Inj (Levemir Inj) 1,000 unit/ 10 ML Vial 22 UNITS SQ BID Blood Sugar Management #60 INJECTION Lisinopril (Lisinopril) 5 Mg Tab 5 MG PO DAILY Blood Pressure Management #30 TAB Additional Information The exam, history, and the medical decision-making described in the above note were completed with the assistance of the mid-level provider. I reviewed and agree with the findings presented. I attest that I had a [id number] encounter with the patient on the same day, and personally performed and documented my assessment and findings in the medical record. Emily Colon PA-C Apr 11, 2017 09:25 Jordan Cole MD Apr 11, 2017 17:14
[2017-04-11] MEDS: SODIUM CHLORIDE 0.9% FLUSH 10 ML FLUSH IV FLUSH SCH (09:49)
[2017-04-11] MEDS: LISINOPRIL 5 MG TAB PO SCH (09:49)
[2017-04-11] MEDS: ASPIRIN 81 MG CHEW TAB CHEW SCH (09:49)
== END 2017-04-11 11:23 | disposition home or self-care (01) ==
LOC: NEPE 12:26 → NEDA 15:19 → NEPGCP 21:52
PROVIDERS: ADMIT Internal Medicine; ATTEND Internal Medicine
DX: E11.65 Type 2 diabetes mellitus with hyperglycemia (principal); R06.02 Shortness of breath; R20.0 Anesthesia of skin; R20.2 Paresthesia of skin; R42 Dizziness and giddiness; R00.2 Palpitations; R61 Generalized hyperhidrosis; R19.7 Diarrhea, unspecified; K59.00 Constipation, unspecified; I45.10 Unspecified right bundle-branch block; R94.31 Abnormal electrocardiogram [ECG] [EKG]; R00.0 Tachycardia, unspecified; R51 Headache; R07.2 Precordial pain; I10 Essential (primary) hypertension; E78.5 Hyperlipidemia, unspecified; E78.1 Pure hyperglyceridemia; L83 Acanthosis nigricans; E66.01 Morbid (severe) obesity due to excess calories; F17.200 Nicotine dependence, unspecified, uncomplicated; Z91.14 Patient's other noncompliance with medication regimen
CPT/HCPCS: 70450; 71010; 78452; 80048; 80053; 80061; 82550; 82607; 82948; 83036; 83735; 84443; 84484; 85025; 85610; 85730; 93005; 93017; 93306; 96372; 99285; A9502; G0378; J1815; J2785; J7030